=== PATIENT | female | born 1960 | race Hispanic/Latino ===

== ENCOUNTER 2020-05-20 23:02 | Emergency (ER) | payer SELFPAY ==
--- NOTE | 2020-05-21 00:04 | Event Note ---
ED Screening Note ED Screening Note: [facility] reports ALBERT, fever, bodyaches, abd and leg cramps x 3 days. 02 sat 91% on RA for EMS, pt placed on NC 3 L/min, o2 sat now 97%. BP 92/58 for EMS, BP 106/63 in triage. Pt is aaox4, pt appears uncomfortably but in no distress. 59-year-old smoker presents emerged department complaining of a 3-day history of progressively worsening fever, myalgias, headache, shortness of breath, coughing which have been progressive worsening since the onset. She phoned the ER EMS for evaluation and found to have saturation on room air 91% was placed on nasal cannula for which she does not normally use home oxygen. Blood pressure was 90s over the 50s associated with mild presyncope. She reports no palliative or provocative factors to her knowledge although she had to utilize a wheelchair to be mobilized around the ER due to shortness of breath but that is not her usual This initial assessment/diagnostic orders/clinical plan/treatment(s) is/are subject to change based on patients health status, clinical progression and re- assessment by fellow clinical providers in the ED. Further treatment and workup at subsequent clinical providers discretion. Patient/guardian urged not to elope from the ED as their condition may be serious if not clinically assessed and managed. Initial orders include: Labs, x-ray, EKG, evaluate for sepsis as well as likely coronavirus
[2020-05-21 01:22] LABS: Basophils % (Auto) 0.3 % (0.0-1.8); Eosinophils # (Auto) 0.1 K/mm3 (0.0-0.4); Eosinophils % (Auto) 0.6 % (0.0-4.3); Hematocrit 38.2 % (30.3-42.9); Hemoglobin 13.4 gm/dl (10.1-14.3); Lymphocytes # (Auto) 0.5 K/mm3 (1.2-5.4); Lymphocytes % (Auto) 5.5 % (13.4-35.0); Mean Corpuscular HGB Conc 35 % (30-34); Mean Corpuscular Volume 93 fl (79-97); Mean Platelet Volume 9.7 fl (6-12); Monocytes # (Auto) 0.8 K/mm3 (0.0-0.8); Monocytes % (Auto) 8.2 % (0.0-7.3); Platelet Count 132 K/mm3 (140-440); Red Blood Count 4.12 M/mm3 (3.65-5.03); Red Cell Distribution Width 12.8 % (13.2-15.2)
[2020-05-21 01:29] LABS: BUN/Creatinine Ratio 20; Blood Urea Nitrogen 24 mg/dL (7-17); Calcium 8.2 mg/dL (8.4-10.2)
[2020-05-21 01:30] LABS: Alanine Aminotransferase 25 units/L (7-56); Albumin 3.6 g/dL (3.9-5)
[2020-05-21] MEDS ORDERED: SODIUM CHLORIDE 0.9% 1000 ML 1,000 ML IV ONE (04:31)
[2020-05-21] MEDS ORDERED: KETOROLAC 30 MG/1 ML INJ IV ONE (04:31)
[2020-05-21] MEDS ORDERED: ONDANSETRON 4 MG/2 ML INJ IV ONE (04:32)
--- NOTE | 2020-05-21 04:49 | XRay Report ---
CHEST 2 VIEWS INDICATION / CLINICAL INFORMATION: Dyspnea. COMPARISON: None available. FINDINGS: SUPPORT DEVICES: None. HEART / MEDIASTINUM: Cardiomegaly. LUNGS / PLEURA: No significant pulmonary or pleural abnormality. No pneumothorax. ADDITIONAL FINDINGS: No significant additional findings. IMPRESSION: 1. Cardiomegaly without CHF Signer Name: Moncho Miranda MD Signed: 05/21/2020 4:45 AM Workstation Name: [id number]
--- NOTE | 2020-05-21 04:59 | Emergency Department Report ---
ED Shortness of Breath HPI - General Chief Complaint: Dyspnea/Respdistress Stated Complaint: ALBERT/FEVER Time Seen by Provider: 05/21/20 04:19 Source: patient Mode of arrival: Wheelchair Limitations: No Limitations - History of Present Illness Initial Comments: Patient is a 59-year-old female who is presenting with myalgias and mild cough for the past 3 days. Patient states she has had body aches all over as well as a cough which is nonproductive. She does have some mild shortness of breath especially with exertion. Denies vomiting diarrhea. O2 sats were 91% on room air prior to arrival and she was placed on oxygen. - Related Data Previous Rx's Medication Instructions Recorded Last Taken Type Cephalexin [Keflex] 500 mg PO TID #21 capsule 01/14/13 Unknown Rx Albuterol Mdi (or & Nicu Only) 2 puff IH QID PRN #1 inhalation 05/21/20 Unknown Rx [ProAir HFA Inhaler] Benzonatate [Tessalon Perles] 100 mg PO Q8HR #10 capsule 05/21/20 Unknown Rx Ondansetron [Zofran Odt] 4 mg PO Q8HR #10 tab.rapdis 05/21/20 Unknown Rx predniSONE [Deltasone] 20 mg PO QDAY #5 tab 05/21/20 Unknown Rx traMADoL [Ultram] 50 mg PO Q6HR PRN #12 tablet 05/21/20 Unknown Rx Allergies Allergy/AdvReac Type Severity Reaction Status Date / Time No Known Allergies Allergy Unverified 01/14/13 08:41 ED Review of Systems ROS: Stated complaint: ALBERT/FEVER Other details as noted in HPI Comment: All other systems reviewed and negative ED Past Medical Hx - Past Medical History Previous Medical History?: Yes Additional medical history: hepatitis c. tumor - Surgical History Past Surgical History?: Yes Additional Surgical History: thyroidectomy - Social History Smoking Status: Current Some Day Smoker Substance Use Type: None - Medications Home Medications: Home Medications Medication Instructions Recorded Confirmed Last Taken Type Cephalexin [Keflex] 500 mg PO TID #21 capsule 01/14/13 Unknown Rx Albuterol Mdi (or & Nicu Only) 2 puff IH QID PRN #1 inhalation 05/21/20 Unknown Rx [ProAir HFA Inhaler] Benzonatate [Tessalon Perles] 100 mg PO Q8HR #10 capsule 05/21/20 Unknown Rx Ondansetron [Zofran Odt] 4 mg PO Q8HR #10 tab.rapdis 05/21/20 Unknown Rx predniSONE [Deltasone] 20 mg PO QDAY #5 tab 05/21/20 Unknown Rx traMADoL [Ultram] 50 mg PO Q6HR PRN #12 tablet 05/21/20 Unknown Rx ED Physical Exam - General Limitations: No Limitations General appearance: alert, in no apparent distress - Head Head exam: Present: atraumatic, normocephalic - Eye Eye exam: Present: normal appearance - ENT ENT exam: Present: mucous membranes moist - Neck Neck exam: Present: normal inspection - Respiratory Respiratory exam: Present: normal lung sounds bilaterally. Absent: respiratory distress, wheezes, rales, rhonchi - Cardiovascular Cardiovascular Exam: Present: normal rhythm, tachycardia. Absent: systolic murmur, diastolic murmur, rubs, gallop - GI/Abdominal GI/Abdominal exam: Present: soft, normal bowel sounds. Absent: distended, tenderness, guarding, rebound - Extremities Exam Extremities exam: Present: normal inspection - Back Exam Back exam: Present: normal inspection - Neurological Exam Neurological exam: Present: alert, oriented X3 - Psychiatric Psychiatric exam: Present: normal affect, normal mood - Skin Skin exam: Present: warm, dry, intact, normal color. Absent: rash ED Course Vital Signs 05/20/20 05/21/20 05/21/20 23:24 02:59 04:31 Temperature 100.5 F H Pulse Rate 122 H 105 H 103 H Respiratory 16 18 24 Rate Blood Pressure 106/63 119/71 O2 Sat by Pulse 99 96 99 Oximetry 05/21/20 05/21/20 05:00 05:16 Temperature 101.3 F H Pulse Rate 111 H Respiratory 26 H Rate Blood Pressure 125/63 O2 Sat by Pulse Oximetry - Reevaluation(s) Reevaluation #1: 05/21/20 04:58 At the time of my history and physical the patient is on room air and satting 100%. Review of her laboratory studies the patient does have decrease in her sodium and chloride and she is mildly tachycardic consistent with mild dehydration. Patient has had decreased appetite last several days. Patient given a liter of IV fluids and we will walk the patient in the room to make sure that she does not drop her O2 sat with exertion. Reevaluation #2: 05/21/20 05:14 Patient maintained adequate O2 saturation with exertion. ED Medical Decision Making - Lab Data Result diagrams: 05/21/20 00:06 05/21/20 00:06 Lab Results 05/21/20 05/21/20 05/21/20 Range/Units 00:06 00:06 00:06 WBC 9.2 (4.5-11.0) K/mm3 RBC 4.12 (3.65-5.03) M/mm3 Hgb 13.4 (10.1-14.3) gm/dl Hct 38.2 (30.3-42.9) % MCV 93 (79-97) fl MCH 32 (28-32) pg MCHC 35 H (30-34) % RDW 12.8 L (13.2-15.2) % Plt Count 132 L (140-440) K/mm3 Lymph % (Auto) 5.5 L (13.4-35.0) % [place] % (Auto) 8.2 H (0.0-7.3) % Eos % (Auto) 0.6 (0.0-4.3) % Baso % (Auto) 0.3 (0.0-1.8) % Lymph # (Auto) 0.5 L (1.2-5.4) K/mm3 [place] # (Auto) 0.8 (0.0-0.8) K/mm3 Eos # (Auto) 0.1 (0.0-0.4) K/mm3 Baso # (Auto) 0.0 (0.0-0.1) K/mm3 Add Manual Diff Complete Seg Neutrophils % 85.4 H (40.0-70.0) % Seg Neutrophils # 7.9 H (1.8-7.7) K/mm3 Sodium 131 L (137-145) mmol/L Potassium 3.1 L (3.6-5.0) mmol/L Chloride 95.9 L (98-107) mmol/L Carbon Dioxide 20 L (22-30) mmol/L Anion Gap 18 mmol/L BUN 24 H (7-17) mg/dL Creatinine 1.2 (0.6-1.2) mg/dL Estimated GFR 46 ml/min BUN/Creatinine Ratio 20 % Glucose 169 H (65-100) mg/dL Lactic Acid 1.50 (0.7-2.0) mmol/L Calcium 8.2 L (8.4-10.2) mg/dL Magnesium 1.90 (1.7-2.3) mg/dL Total Bilirubin 0.70 (0.1-1.2) mg/dL AST 21 (5-40) units/L ALT 25 (7-56) units/L Alkaline Phosphatase 73 (35-129) units/L Troponin T (0.00-0.029) ng/mL Total Protein 7.4 (6.3-8.2) g/dL Albumin 3.6 L (3.9-5) g/dL Albumin/Globulin Ratio 0.9 % / Range/Units 00:10 WBC (4.5-11.0) K/mm3 RBC (3.65-5.03) M/mm3 Hgb (10.1-14.3) gm/dl Hct (30.3-42.9) % MCV (79-97) fl MCH (28-32) pg MCHC (30-34) % RDW (13.2-15.2) % Plt Count (140-440) K/mm3 Lymph % (Auto) (13.4-35.0) % [place] % (Auto) (0.0-7.3) % Eos % (Auto) (0.0-4.3) % Baso % (Auto) (0.0-1.8) % Lymph # (Auto) (1.2-5.4) K/mm3 [place] # (Auto) (0.0-0.8) K/mm3 Eos # (Auto) (0.0-0.4) K/mm3 Baso # (Auto) (0.0-0.1) K/mm3 Add Manual Diff Seg Neutrophils % (40.0-70.0) % Seg Neutrophils # (1.8-7.7) K/mm3 Sodium (137-145) mmol/L Potassium (3.6-5.0) mmol/L Chloride (98-107) mmol/L Carbon Dioxide (22-30) mmol/L Anion Gap mmol/L BUN (7-17) mg/dL Creatinine (0.6-1.2) mg/dL Estimated GFR ml/min BUN/Creatinine Ratio % Glucose (65-100) mg/dL Lactic Acid (0.7-2.0) mmol/L Calcium (8.4-10.2) mg/dL Magnesium (1.7-2.3) mg/dL Total Bilirubin (0.1-1.2) mg/dL AST (5-40) units/L ALT (7-56) units/L Alkaline Phosphatase (35-129) units/L Troponin T < 0.010 (0.00-0.029) ng/mL Total Protein (6.3-8.2) g/dL Albumin (3.9-5) g/dL Albumin/Globulin Ratio % - Radiology Data [facility] [address] [place] [address] XRay Report Signed Patient: OBDULIA MCCAIN MR#: [id number] 0 : 1960 Acct:[id number] Age/Sex: 59 / F ADM Date: 05/20/20 Loc: ED Attending Dr: Ordering Physician: RIC ORELLANA Date of Service: 05/20/20 Procedure(s): XR chest routine 2V Accession Number(s): [id number] cc: RIC ORELLANA Fluoro Time In Minutes: CHEST 2 VIEWS INDICATION / CLINICAL INFORMATION: Dyspnea. COMPARISON: None available. FINDINGS: SUPPORT DEVICES: None. HEART / MEDIASTINUM: Cardiomegaly. LUNGS / PLEURA: No significant pulmonary or pleural abnormality. No pneumothorax. ADDITIONAL FINDINGS: No significant additional findings. IMPRESSION: 1. Cardiomegaly without CHF Signer Name: Moncho Miranda MD Signed: 05/21/2020 4:45 AM Workstation Name: [id number] Transcribed By: TL Dictated By: Moncho Miranda MD Electronically Authenticated By: Moncho Miranda MD Signed Date/Time: 05/21/20 5450 - Medical Decision Making Patient with some signs and symptoms of COVID-19. No pneumonia was found in her O2 sat situation actually was within normal limits. Emergency department. Patient is been hydrated given medication for symptomatic relief and should be discharged home. Patient can follow-up with urgent care for outpatient COVID-19 testing. Critical care attestation.: If time is entered above; I have spent that time in minutes in the direct care of this critically ill patient, excluding procedure time. ED Disposition Clinical Impression: Suspected COVID-19 virus infection, Acute bronchitis, Mild dehydration Disposition: DC- TO HOME OR SELFCARE Is pt being admited?: No Does the pt Need Aspirin: No Condition: Stable Instructions: Acute Bronchitis (ED), Dehydration, Adult, [id number], Acute Bronchitis, Adult, COVID-19 Frequently Asked Questions Additional Instructions: Please obtain outpatient COVID-19 testing. Most urgent cares have a rapid test. Referrals: PRIMARY CARE, [Primary Care Provider] - 3-5 Days Time of Disposition: 05:33
[2020-05-21] MEDS ORDERED: ACETAMINOPHEN 325 MG TAB PO ONE (05:08)
[2020-05-21] MEDS ORDERED: SODIUM CHLORIDE 0.9% 500 ML 500 ML IV ONE (05:08)
[2020-05-21 07:59] VITALS: BP 115/62
--- NOTE | 2020-05-21 09:58 | Electrocardiograph Report ---
[facility] Test Date: 2020-05-21 Test Time: 03:51:25 Pat Name: OBDULIA MCCAIN Department: Room: Gender: F [employer] Worker: [place] : 1960 Requested By: NORMA BLACK Order Number: [id number] Reading MD: Clinton Hernandez Measurements Intervals [place] Rate: 104 P: 35 KS: 151 QRS: 51 QRSD: 83 T: 35 QT: 340 QTc: 448 Interpretive Statements Sinus tachycardia Probable left atrial enlargement Inferior infarct, old No previous ECG available for comparison Electronically Signed On 05-21-2020 6:58:01 PDT by Clinton Hernandez
== END 2020-05-21 07:59 | disposition home or self-care (01) ==
LOC: ED 23:02
DX: J20.9 Acute bronchitis, unspecified (principal); E86.0 Dehydration; Z90.710 Acquired absence of both cervix and uterus; Z79.899 Other long term (current) drug therapy
CPT/HCPCS: 36415; 71046; 80053; 82140; 83735; 84484; 85025; 93005; 96361; 96374; 96375; 99284; J1885; J2405; J7030; J7040